=== PATIENT | male | born 1965 | race Caucasian/White ===

== ENCOUNTER 2024-08-29 13:24 | Emergency (ER) | payer BC, SELFPAY ==
[2024-08-29 13:27] VITALS: BP 140/99
--- NOTE | 2024-08-29 14:38 | ED.GENMED ---
History of Present Illness
General
Chief Complaint: Musculo-Skeletal Complaint
Source: patient
Time Seen by Provider: 08/29/24 14:23
History of Present Illness
History of Present Illness:
59yo left hand dominant male with a history of type 2 diabetes and hypothyroidism presenting for evaluation of right wrist pain. Pain started yesterday. He denies any trauma or inciting incident. Pain is present from the wrist down throughout the
hand. Pain is worse with movement. He is also having some tingling in all of his fingers. No prior history of similar pains. He denies any history of gout or rheumatologic disorders. No recent tick bites or rashes.
Past History
Past History
ED Past Medical History: NIDDM and Other (sleep apnea)
ED Past Surgical History: Other (hernia)
Social History
Tobacco: Non-smoker
Personal:
Living: with family
Phy Exam
General Physical Exam
General Presentation: well appearing and no apparent distress
General age: appears stated age
General Skin: warm and dry
General Habitus: normal
General Mental: alert
General Hydration: appears well hydrated
ENT Exam
ENT Exam: normocephalic
Neurological Exam
Neurological Exam: alert
Musculoskeletal Exam
Musculoskeletal Exam: other (Right wrist: Normal to inspection without obvious swelling. No erythema or warmth. +Diffuse tenderness to joint. Pain elicited with ROM. 2+ radial pulse and sensation intact. )
Skin Exam
Skin Exam: normal color and warm/dry
Psychiatric Exam
Psychiatric Exam: normal mood/affect
Course
Orders/Labs/Results
Orders:
Orders
08/29/24 13:30
CR Hand - Right Min 3 Views Urgent
Comment:
Reason For Exam: pain
Wrist, Right 3 Views [CR Wrist - Right Min 3 Views] Urgent
Comment:
Reason For Exam: pain
08/29/24 14:37
[place] Wrist Right-Tx ONCE
Prednisone [Deltasone] 40 mg PO NOW STA
Vital Signs
Initial and Last Documented VS:
Initial Vital Signs
Temp Pulse Resp BP Pulse Ox
98.2 F 97 20 140/99 98
08/29/24 13:27 08/29/24 13:27 08/29/24 13:27 08/29/24 13:27 08/29/24 13:27
Last Documented Vital Signs
Temp Pulse Resp BP Pulse Ox
98.2 F 80 18 130/70 98
08/29/24 13:27 08/29/24 15:07 08/29/24 15:07 08/29/24 15:07 08/29/24 15:07
MDM/Problems Addressed
Differential Diagnosis Includes:
59yoM here with atraumatic R wrist pain x 1 day. Pain worse with movement. No swelling or erythema on exam. There is diffuse joint tenderness. RLE is neurovascularly intact. Differential diagnosis includes but is not limited to: Fracture, sprain,
gout, other inflammatory arthritis, no clinical evidence of septic arthritis
X-rays of the right hand and wrist obtained. No acute osseous abnormality seen on imaging. There is minimal osteoarthritis noted. Will trial course of prednisone. He was placed in a wrist brace for comfort. Advised follow-up with PCP and
orthopedics if symptoms persist. ED return precautions discussed including fevers. He was discharged stable condition.
*Critical Care Note
Total Time (30-74mins, 75-104mins- exclusive of procedures): Not Applicable
ED Attending Note
-
Portions of this chart may have been created with voice recognition software.� Occasional wrong word or��sound alike� substitutions may have occurred due to the inherent limitations of voice recognition software.
Discharge Plan
Departure
Patient Disposition: Home (Routine Discharge)
Date of Disposition: 08/29/24
Time of Disposition: 14:39
Patient with high blood pressure during this ER visit?: Yes
Discharge Problem:
Right wrist pain
Instructions: Muscle and bone pain - Discharge instructions
Prescriptions:
New
prednisone 20 mg tablet
40 mg PO DAILY 4 Days Qty: 8 0RF
No Action
cetirizine [All Day Allergy Relief(cetir)] 10 MG tablet
10 mg PO HS
prednisone 10 MG tablets,dose pack
. DIRECTED
Patient Comments:
3 pills of third days taken 02/04/12
cephalexin 500 MG capsule
500 mg PO TID
levothyroxine 200 MCG tablet
200 mcg PO HS
fluticasone propionate 1 SPRAY spray,suspension
1 spray intranasal HS
amoxicillin-pot clavulanate 1 TABLET tablet
1 tab PO Q12 Qty: 19 0RF
Referrals:
Buck Burnett MD [Family Provider] -
Chapo Mortensen MD [Active] -
Activity Restrictions/Additional Instructions:
Apply ice to affected area. Take prednisone as prescribed, next dose is tomorrow. You may also take Tylenol and ibuprofen as needed. Use wrist brace for support.
Please follow-up with your family doctor and orthopedics. Return to the ER with any worsening symptoms or fevers.
Interventions
Interventions:
*Risk Screen - Suicide Last Done: 08/29/24 13:30
*General Assessment Last Done: 08/29/24 13:30
*Neglect/Abuse Screening Last Done: 08/29/24 15:07
*ED COVID-19 Vaccine History Last Done: 08/29/24 13:30
*Nursing Disposition Last Done: 08/29/24 15:07
ED-Musculoskeletal Assessment Last Done: 08/29/24 13:45
Discharge Date and Time
Discharge Date/Time: 08/29/24 15:09
Print Language: TRINIDADIAN
[2024-08-29] MEDS: DELTASONE 40 MG PO (14:52)
[2024-08-29 15:07] VITALS: BP 130/70
== END 2024-08-29 15:09 | disposition home or self-care (01) ==
LOC: EMR 13:24
PROVIDERS: EMERGENCY PHYSICIAN Emergency Medicine; FAMILY PHYSICIAN Family Medicine
DX: M25.531 Pain in right wrist (principal); E11.9 Type 2 diabetes mellitus without complications; G47.30 Sleep apnea, unspecified; E03.9 Hypothyroidism, unspecified
CPT/HCPCS: 99283; 73110; 73130

== ENCOUNTER 2025-01-03 11:16 | Emergency (ER) | payer BC, SELFPAY ==
[2025-01-03 11:19] VITALS: BP 136/90
--- NOTE | 2025-01-03 11:38 | ED.GENMED ---
History of Present Illness
General
Chief Complaint: Musculo-Skeletal Complaint
Time Seen by Provider: 01/03/25 11:28
History of Present Illness
History of Present Illness:
TIME OF INITIAL ENCOUNTER: 11:30 AM
HPI: The patient has a history of diabetic neuropathy and over the past week or so has been having increasing pain primarily at the right lateral malleolus. There is been no trauma. He chronically has swelling to the lower extremities which is
overall improving this week while trying to keep the leg elevated is much as possible. He sees a stock worker and deliverer.
EXAM:
GENERAL: Well appearing in no distress, markedly elevated BMI
HEENT: Moist oral mucosa
NEUROLOGIC: Excellent strength all extremities, no obvious coordination deficits
PSYCHIATRIC: Appropriate mental status, normal insight and judgement
EXTREMITIES: Diffuse swelling noted to both lower extremities, no wounds noted, there is point tenderness to the right lateral malleolus, there is an easily palpable DP pulse with good capillary refill
SKIN: Some superficial varicosities noted
NUMBER AND COMPLEXITY OF PROBLEMS ADDRESSED AT THE ENCOUNTER
� Chronic conditions affecting care: Diabetic neuropathy
� Acute Exacerbation and/or Progression of Chronic Illness: This is an acute problem
� Differential Diagnosis includes: Pain related to diabetic neuropathy, no evidence of cellulitis/infection, nondisplaced stress fracture, ankle sprain
AMOUNT AND/OR COMPLEXITY OF DATA TO BE REVIEWED AND ANALYZED
� I performed an independent evaluation of and my interpretation is:
EKG:
CT:
X-rays: X-rays personally reviewed and I agree with radiologist interpretation that there is no acute abnormality
Laboratory Studies:
Other:
� Review of other/old records: I reviewed records, the patient was seen here with wrist pain in August 2024, the patient went to the OR with Dr. Arrieta in 2014 related to right medial meniscus tear
� Clinical information was obtained by an independent historian: I spoke to the daughter at bedside
� Prescriptions/Medications Considered but not given:
� Further testing considered but not performed:
RISK OF COMPLICATIONS AND/OR MORBIDITY OR MORTALITY OF PATIENT MANAGEMENT
� Social determinants of health affecting care: Lives at home
� Discussion with other providers:
� Escalation of care including admission/observation vs risk of discharge considered: Symptoms could be related to diabetic neuropathy. Seems to have point tenderness at the right lateral malleolus but x-rays unremarkable. He
was given a shot of Toradol here. He reports normal renal function. He will continue Motrin at home. Air splint given.
ANY OTHER UPDATES:
Past History
Past History
ED Past Medical History: NIDDM and Other (sleep apnea)
ED Past Surgical History: Other (hernia)
Social History
Tobacco: Non-smoker
Personal:
Living: with family
Phy Exam
Physical Exam
Physical Exam:
See HPI
Course
Orders/Labs/Results
Orders:
Orders
01/03/25 11:37
Air Splint Right-Treatment ONCE
Ketorolac [Toradol] 30 mg IM NOW STA
CR Ankle - Right Min 3 Views * Urgent
Comment:
Reason For Exam: nontraumatic pain R lat mall
Vital Signs
Initial and Last Documented VS:
Initial Vital Signs
Temp Pulse Resp BP Pulse Ox
36.3 C 97 18 136/90 98
01/03/25 11:19 01/03/25 11:19 01/03/25 11:19 01/03/25 11:19 01/03/25 11:19
Last Documented Vital Signs
Temp Pulse Resp BP Pulse Ox
36.3 C 84 16 124/75 99
01/03/25 11:19 01/03/25 12:00 01/03/25 12:00 01/03/25 12:00 01/03/25 12:00
*Critical Care Note
Total Time (30-74mins, 75-104mins- exclusive of procedures): Not Applicable
ED Attending Note
-
Portions of this chart may have been created with voice recognition software.� Occasional wrong word or��sound alike� substitutions may have occurred due to the inherent limitations of voice recognition software.
Discharge Plan
Departure
Patient Disposition: Home (Routine Discharge)
Date of Disposition: 01/03/25
Time of Disposition: 12:55
Patient with high blood pressure during this ER visit?: Yes
Discharge Problem:
Diabetic neuropathy
Instructions: Foot care for people with diabetes, BLOOD PRESSURE
Prescriptions:
No Action
cetirizine [All Day Allergy Relief(cetir)] 10 MG tablet
10 mg PO HS
prednisone 10 MG tablets,dose pack
. DIRECTED
Patient Comments:
3 pills of third days taken 02/04/12
cephalexin 500 MG capsule
500 mg PO TID
levothyroxine 200 MCG tablet
200 mcg PO HS
fluticasone propionate 1 SPRAY spray,suspension
1 spray intranasal HS
amoxicillin-pot clavulanate 1 TABLET tablet
1 tab PO Q12 Qty: 19 0RF
prednisone 20 mg tablet
40 mg PO DAILY 4 Days Qty: 8 0RF
Referrals:
Buck Burnett MD [Family Provider] -
Jose David Sanford MD [Active] - As needed
Activity Restrictions/Additional Instructions:
The cause of your symptoms is unclear but could be related to your diabetic neuropathy. The x-ray shows no acute abnormality. You can take the splint on and off for comfort. I have given you the contact information for local orthopedist to
follow-up with if needed, Dr. Sanford.
Interventions
Interventions:
*Risk Screen - Suicide Last Done: 01/03/25 11:19
*General Assessment Last Done: 01/03/25 11:19
*Neglect/Abuse Screening Last Done: 01/03/25 11:19
*ED- Fall Risk Assessment Last Done: 01/03/25 11:28
*Nursing Disposition Last Done: 01/03/25 12:58
ED-Musculoskeletal Assessment Last Done: 01/03/25 11:28
Discharge Date and Time
Print Language: MALAY
[2025-01-03] MEDS: TORADOL 30 MG IM (11:43)
[2025-01-03 12:00] VITALS: BP 124/75
== END 2025-01-03 12:58 | disposition home or self-care (01) ==
LOC: EMR 11:16
PROVIDERS: EMERGENCY PHYSICIAN Emergency Medicine; FAMILY PHYSICIAN Family Medicine
DX: E11.40 Type 2 diabetes mellitus with diabetic neuropathy, unspecified (principal); G47.30 Sleep apnea, unspecified
CPT/HCPCS: 99283; 96372; 73610

== ENCOUNTER 2025-06-15 10:38 | Emergency (ER) | payer BC, SELFPAY ==
[2025-06-15 10:43] VITALS: BP 143/89
--- NOTE | 2025-06-15 11:56 | ED.GENMED ---
History of Present Illness
<Rusty Bearden MD, Resident - Last Filed: 06/15/25 15:39>
General
Chief Complaint: Musculo-Skeletal Complaint
Source: patient
Exam Limitations: none
Time Seen by Provider: 06/15/25 11:07
History of Present Illness
History of Present Illness:
Patient is a 60-year-old male who presents to the emergency department with left foot and left knee pain that started 5 days prior to his presentation. he stated that he was resting in bed and heard cracking at his left foot and while there was no
pain initially 12 hours later and immense pain started. He has a history of diabetes, diabetic neuropathy, hypothyroidism, sleep apnea, right knee arthroscopic surgery, mastoidectomy of the right side, and obesity. His baseline weight is decreased
from 395 pounds to 335 pounds since starting Mounjaro. Few weeks ago he saw his orthopedist and he was evaluated, and the recommendations was that the patient would likely need to have a left knee replacement in the future. He states that there is
an immense amount of pain between the left knee and foot localized to the lateral aspect of the lower limb. He is having difficulty bending the knee and any movement is painful. He describes the pain as sharp and it is rated a 4 out of 10 at rest
but when he tries to ambulate it approaches a 9-10 out of 10. He uses a walker to ambulate normally. He has good sensation throughout the lower limb except for at the toes which is unchanged from his baseline.
Past History
<Rusty Bearden MD, Resident - Last Filed: 06/15/25 15:39>
Past History
ED Past Medical History: NIDDM and Other (sleep apnea)
ED Past Surgical History: Other (hernia)
Social History
Tobacco: Non-smoker
Personal:
Living: with family
Family History
Family History: Diabetes ( Father had diabetes) and Hypertension ( mother had hypertension)
Review of Systems
<Rusty Bearden MD, Resident - Last Filed: 06/15/25 15:39>
Review of Systems
Constitutional: Reports no symptoms
EENT: Reports no symptoms
Respiratory: Reports no symptoms
Cardiac: Reports no symptoms
ABD/GI: Reports no symptoms
: Reports no symptoms
Musculoskeletal: Reports no symptoms
Skin: Reports no symptoms
Neurological: Reports numbness ( Bilateral lower digit numbness - unchanged from baseline)
Endocrine: Reports no symptoms
Hematologic/Lymphatic: Reports no symptoms
Psychiatric: Reports no symptoms
Phy Exam
<Rusty Bearden MD, Resident - Last Filed: 06/15/25 15:39>
General Physical Exam
General Presentation: well appearing
General age: appears stated age
General Skin: warm and dry
General Habitus: obese
General Mental: alert
General Hydration: appears well hydrated
Cardiovascular Exam
Cardiovascular Exam: regular rate/rhythm, no edema, no gallop, no JVD, no murmur and normal peripheral pulses
Pulmonary Exam
Pulmonary Exam: lungs clear, no respiratory distress, no rales, chest non tender, no crackles, no rhonchi, no stridor, no wheezing and no cough
Oxygen Status: room air
Musculoskeletal Exam
Musculoskeletal Exam: other ( difficulty with movement of the left knee. Sensation and strength preserved throughout lower left limb. Numbness of the lower digits bilaterally which remains unchanged from baseline. Popliteal pulses appreciated
bilaterally.)
Skin Exam
Skin Exam: other ( venous stasis of the bilateral lower limbs)
Course
<Rusty Bearden MD, Resident - Last Filed: 06/15/25 15:39>
Orders/Labs/Results
Orders:
Orders
06/15/25 11:36
Foot, Left 3 View [CR Foot - Left Min 3 Views] Urgent
Comment:
Reason For Exam: atraumatic left lateral foot/ankle pain
06/15/25 11:37
Ankle, left 3 view CR [CR Ankle - Left Min 3 Views ] Urgent
Comment:
Reason For Exam: atraumatic left foot and ankle pain
US Legs, Left [US Periph Venous LOWER Ext LT] Urgent
Comment:
Reason For Exam: L calf and L ankle pain
06/15/25 11:39
Oxycodone [Roxicodone] 10 mg PO NOW STA
06/15/25 15:37
Urinalysis Reflex To Culture Urgent
Date Specimen was Collected: 06/15/25
Time Specimen was Collected: 15:36
Urine Microscopic Reflex Cult Urgent
Urine Culture Urgent
ELÍAS Source: U
Specimen Description:
Date Specimen was Collected: 06/15/25
Time Specimen was Collected: 15:36
06/15/25 15:53
Kidney & Bladder US [US Renal With Bladder] Urgent
Comment:
Reason For Exam: bloody urine
06/15/25 15:58
Complete Blood Count/No Diff Urgent
Comprehensive Metabolic Panel Urgent
06/15/25 19:39
Cephalexin Monohydrate [Keflex] 500 mg PO NOW STA
Abnormal Lab Results
06/15/25 06/15/25
15:37 15:58
WBC 14.3 H 10^3/uL
(4.8-10.8)
MCHC 32.9 L g/dL
(33.0-37.0)
Glucose 105 H mg/dl
(70-99)
Total Bilirubin 2.4 H mg/dl
(0.2-1.3)
Ur Occult Blood Reflex 4+ A
(Negative)
Urine Bilirubin 1+ A
(Negative)
Urine Urobilinogen 2+ A
(Neg - 1+)
Leukocyte Esterase Rfl 1+ A
(Negative)
Urine RBC 60-70 A /HPF
(0-2)
Urine Bacteria (Reflex) Few A
(Negative)
Urine Albumin (Reflex) 2+ A
(Neg - Trace)
06/15/25 15:58
06/15/25 15:58
Vital Signs
Initial and Last Documented VS:
Initial Vital Signs
Pulse Resp BP Pulse Ox
108 16 143/89 98
06/15/25 10:43 06/15/25 10:43 06/15/25 10:43 06/15/25 10:43
Last Documented Vital Signs
Pulse Resp BP Pulse Ox
108 16 143/89 98
06/15/25 10:43 06/15/25 10:43 06/15/25 10:43 06/15/25 11:57
<Dimple Encarnacion MD - Last Filed: 06/15/25 12:12>
Orders/Labs/Results
Orders:
Orders
06/15/25 11:36
Foot, Left 3 View [CR Foot - Left Min 3 Views] Urgent
Comment:
Reason For Exam: atraumatic left lateral foot/ankle pain
06/15/25 11:37
Ankle, left 3 view CR [CR Ankle - Left Min 3 Views ] Urgent
Comment:
Reason For Exam: atraumatic left foot and ankle pain
US Legs, Left [US Periph Venous LOWER Ext LT] Urgent
Comment:
Reason For Exam: L calf and L ankle pain
06/15/25 11:39
Oxycodone [Roxicodone] 10 mg PO NOW STA
06/15/25 15:37
Urinalysis Reflex To Culture Urgent
Date Specimen was Collected: 06/15/25
Time Specimen was Collected: 15:36
Urine Microscopic Reflex Cult Urgent
Urine Culture Urgent
ELÍAS Source: U
Specimen Description:
Date Specimen was Collected: 06/15/25
Time Specimen was Collected: 15:36
06/15/25 15:53
Kidney & Bladder US [US Renal With Bladder] Urgent
Comment:
Reason For Exam: bloody urine
06/15/25 15:58
Complete Blood Count/No Diff Urgent
Comprehensive Metabolic Panel Urgent
06/15/25 19:39
Cephalexin Monohydrate [Keflex] 500 mg PO NOW STA
Abnormal Lab Results
06/15/25 06/15/25
15:37 15:58
WBC 14.3 H 10^3/uL
(4.8-10.8)
MCHC 32.9 L g/dL
(33.0-37.0)
Glucose 105 H mg/dl
(70-99)
Total Bilirubin 2.4 H mg/dl
(0.2-1.3)
Ur Occult Blood Reflex 4+ A
(Negative)
Urine Bilirubin 1+ A
(Negative)
Urine Urobilinogen 2+ A
(Neg - 1+)
Leukocyte Esterase Rfl 1+ A
(Negative)
Urine RBC 60-70 A /HPF
(0-2)
Urine Bacteria (Reflex) Few A
(Negative)
Urine Albumin (Reflex) 2+ A
(Neg - Trace)
06/15/25 15:58
06/15/25 15:58
Vital Signs
Initial and Last Documented VS:
Initial Vital Signs
Pulse Resp BP Pulse Ox
108 16 143/89 98
06/15/25 10:43 06/15/25 10:43 06/15/25 10:43 06/15/25 10:43
Last Documented Vital Signs
Pulse Resp BP Pulse Ox
108 16 143/89 98
06/15/25 10:43 06/15/25 10:43 06/15/25 10:43 06/15/25 11:57
Bertlt;Demarcus Jarrett DO - Last Filed: 06/15/25 19:45>
Orders/Labs/Results
Orders:
Orders
06/15/25 11:36
Foot, Left 3 View [CR Foot - Left Min 3 Views] Urgent
Comment:
Reason For Exam: atraumatic left lateral foot/ankle pain
06/15/25 11:37
Ankle, left 3 view CR [CR Ankle - Left Min 3 Views ] Urgent
Comment:
Reason For Exam: atraumatic left foot and ankle pain
US Legs, Left [US Periph Venous LOWER Ext LT] Urgent
Comment:
Reason For Exam: L calf and L ankle pain
06/15/25 11:39
Oxycodone [Roxicodone] 10 mg PO NOW STA
06/15/25 15:37
Urinalysis Reflex To Culture Urgent
Date Specimen was Collected: 06/15/25
Time Specimen was Collected: 15:36
Urine Microscopic Reflex Cult Urgent
Urine Culture Urgent
ELÍAS Source: U
Specimen Description:
Date Specimen was Collected: 06/15/25
Time Specimen was Collected: 15:36
06/15/25 15:53
Kidney & Bladder US [US Renal With Bladder] Urgent
Comment:
Reason For Exam: bloody urine
06/15/25 15:58
Complete Blood Count/No Diff Urgent
Comprehensive Metabolic Panel Urgent
06/15/25 19:39
Cephalexin Monohydrate [Keflex] 500 mg PO NOW STA
Abnormal Lab Results
06/15/25 06/15/25
15:37 15:58
WBC 14.3 H 10^3/uL
(4.8-10.8)
MCHC 32.9 L g/dL
(33.0-37.0)
Glucose 105 H mg/dl
(70-99)
Total Bilirubin 2.4 H mg/dl
(0.2-1.3)
Ur Occult Blood Reflex 4+ A
(Negative)
Urine Bilirubin 1+ A
(Negative)
Urine Urobilinogen 2+ A
(Neg - 1+)
Leukocyte Esterase Rfl 1+ A
(Negative)
Urine RBC 60-70 A /HPF
(0-2)
Urine Bacteria (Reflex) Few A
(Negative)
Urine Albumin (Reflex) 2+ A
(Neg - Trace)
06/15/25 15:58
06/15/25 15:58
Vital Signs
Initial and Last Documented VS:
Initial Vital Signs
Pulse Resp BP Pulse Ox
108 16 143/89 98
06/15/25 10:43 06/15/25 10:43 06/15/25 10:43 06/15/25 10:43
Last Documented Vital Signs
Pulse Resp BP Pulse Ox
108 16 143/89 98
06/15/25 10:43 06/15/25 10:43 06/15/25 10:43 06/15/25 11:57
<Rusty Bearden MD, Resident - Last Filed: 06/15/25 15:39>
*Pulse Oximetry
SaO2: 98
Oxygen Mode of Delivery: Room air
Patient hypoxic: no
*Critical Care Note
Total Time (30-74mins, 75-104mins- exclusive of procedures): 60
<Rusty eBarden MD, Resident - Last Filed: 06/15/25 15:39>
Update Note
Update Note:
Problem List:
left lower leg knee and ankle pain
venous stasis of the lower limbs bilaterally
obesity
deep venous thrombosis
Plan:
oxycodone 10 mg for analgesia
x-ray ankle 3 views
x-ray foot 3 views
left lower limb ultrasound
Sea wrap
Differential Diagnoses:
idiopathic musculoskeletal pain
nerve compression
diabetic neuropathy
Radiology:
- X-ray ankle 3 views conducted on 06/15/2025: No signs of acute fracture
- X-ray foot 3 views conducted on 06/15/2025: no signs of acute fracture
- Ultrasound of the left lower extremity conducted on 06/15/2025: No evidence of DVT of the left lower extremity
EKG: Not applicable
Labs: not applicable
Updates:
patient has normal range of movement of the left lower limb but pain on movement and difficulty putting weight on the limb. good sensation and good strength throughout the limb except for reduced sensation of the digits bilaterally. Strong
popliteal pulses felt.
recommended Sea wrap
oxycodone for analgesia
patient got mild pain relief with the oxycodone given�unfortunately during the process of receiving images and the ultrasound the patient's left leg is in pain and the patient is even more uncomfortable
ultrasound of the left lower leg showed no evidence of DVT
x-ray of the ankle and foot 3 views show no signs of acute fracture
patient to be discharged on 5 mg of oxycodone and with instructions to follow-up with orthopedics and pain specialist at discharge.
patient would like to be discharged at the present time and there are no barriers that would impede the patient from being discharged.
Patient was slated for discharge but in the emergency department the patient experienced hematuria
CBC, CMP, urine analysis, and ultrasound of the bladder and kidneys ordered
ED Attending Note
<Rusty Bearden MD, Resident - Last Filed: 06/15/25 15:39>
-
Portions of this chart may have been created with voice recognition software.� Occasional wrong word or��sound alike� substitutions may have occurred due to the inherent limitations of voice recognition software.
<Dimple Encarnacion MD - Last Filed: 06/15/25 12:12>
ED Attending Note
Patient seen and examined by attending physician: Yes
I performed a history and physical exam of patient and discussed management with resident, I reviewed resident's note and agree with documented findings and plan of care.: Yes
ED Attending Note:
Patient appears extremely well and comfortable. Left ankle is not erythematous and I could passively move it without any significant pain. It is not warm to the touch. Therefore, there is no clinical sign of gout or septic arthritis. Patient's
pain is rather diffuse along the left lateral foot, lateral ankle, and tracks up the left lower leg. I do not see any signs of skin redness suggesting lymphangitis or cellulitis. Pain may be related to arthritis or neuropathy. Patient has strong
pulses of his left foot.
<Demarcus Jarrett DO - Last Filed: 06/15/25 19:45>
ED Attending Note
ED Attending Note:
Patient appears extremely well and comfortable. Left ankle is not erythematous and I could passively move it without any significant pain. It is not warm to the touch. Therefore, there is no clinical sign of gout or septic arthritis. Patient's
pain is rather diffuse along the left lateral foot, lateral ankle, and tracks up the left lower leg. I do not see any signs of skin redness suggesting lymphangitis or cellulitis. Pain may be related to arthritis or neuropathy. Patient has strong
pulses of his left foot.
1940: Pt developed hematuria at the time of discharge. u/s of kidney ordered and NAD. UA shows RBC's. Will cover for hemorrhagic cystitis and advice close urology f/u
Discharge Plan
Departure
Patient Disposition: Home (Routine Discharge)
Date of Disposition: 06/15/25
Time of Disposition: 19:42
Patient with high blood pressure during this ER visit?: No
Condition: Good
Discharge Problem:
Musculoskeletal pain of left lower extremity, Hematuria
Instructions: Knee Pain (DC), Ankle Impingement
Prescriptions:
New
oxycodone 5 mg tablet
5 mg PO Q6H PRN (Reason: Pain) Qty: 12 0RF
cephalexin 500 mg capsule
500 mg PO BID 7 Days Qty: 14 0RF
No Action
fluticasone propionate 1 SPRAY spray,suspension
1 spray intranasal HS
metformin 500 mg tablet
1,000 mg PO BID
levothyroxine 175 mcg tablet
175 mcg PO HS
gabapentin 600 mg tablet
600 mg PO HS
cetirizine 10 mg Tablet
10 mg PO HS
ibuprofen 200 mg Tablet
800 mg PO DAILYPRN PRN (Reason: mild pain)
gabapentin 300 mg capsule
300 mg PO TID@0800,1200,2000
Magnesium Complex 300 mg magnesium Tablet
300 mg PO HS
Mounjaro 12.5 mg/0.5 mL pen injector
12.5 mg SC RICHARDSON
Referrals:
Buck Burnett MD [Family Provider] - Follow up in 1 week
Alex Murray Jr., MD [Active, Urology]
Activity Restrictions/Additional Instructions:
Patient should avoid strenuous physical activity and exacerbation of the already aggravated lower left limb. Patient should avoid strenuous physical activity for 1 week following discharge. Patient should meet with his primary care provider, pain
specialist, and orthopedics following discharge.
Follow up with urology (Dr. Murray)
Interventions
Interventions:
*Risk Screen - Suicide Last Done: 06/15/25 10:43
*General Assessment Last Done: 06/15/25 11:25
*Neglect/Abuse Screening Last Done: 06/15/25 10:43
*ED- Fall Risk Assessment Last Done: 06/15/25 11:25
*ED COVID-19 Vaccine History Last Done: 06/15/25 11:25
ED-Musculoskeletal Assessment Last Done: 06/15/25 11:25
Discharge Date and Time
Print Language: SAL[place]ORE[place]
[2025-06-15] MEDS: ROXICODONE 10 MG PO (12:07)
[2025-06-15 12:08] VITALS: BMI 42.8
[2025-06-15 16:10] LABS: Urine Character Slightly Cloudy (Clear)
[2025-06-15 16:12] LABS: Hematocrit 45.6 % (39.0-52.0); Hemoglobin 15.0 g/dL (13.0-18.0); Mean Corp Hgb Conc. 32.9 g/dL (33.0-37.0); Mean Corpuscular Volume 84.1 fL (80.0-94.0); Platelet Count 262 10^3/uL (130-400); Red Cell Dist. Width 13.8 % (11.5-14.5)
[2025-06-15 16:28] LABS: ALT (SGPT) 28 U/L (0-50); AST (SGOT) 23 U/L (17-59); Albumin 4.1 g/dl (3.5-5.0); Alkaline Phosphatase 65 U/L (38-126); Blood Urea Nitrogen 14 mg/dl (9-20); Calcium 8.8 mg/dl (8.4-10.2); Carbon Dioxide 27 mmol/L (22-30); Chloride 106 mmol/L (98-107); Estimated Creatinine Clearance > 125 ml/min; Glucose 105 mg/dl (70-99); Potassium 3.9 mmol/L (3.5-5.1); Sodium 141 mmol/L (135-145); Total Protein 7.6 g/dl (6.3-8.2); eGFR > 60.00
[2025-06-15 16:52] LABS: Urine Red Blood Cell 60-70 /HPF (0-2)
[2025-06-15 16:53] LABS: Urine White Cell 0-2 /HPF (0-5)
[2025-06-15] MEDS: KEFLEX 500 MG PO (20:00)
== END 2025-06-15 20:40 | disposition home or self-care (01) ==
LOC: EMR 10:38
PROVIDERS: EMERGENCY PHYSICIAN Emergency Medicine; FAMILY PHYSICIAN Family Medicine
DX: M79.605 Pain in left leg (principal); R31.9 Hematuria, unspecified; E11.40 Type 2 diabetes mellitus with diabetic neuropathy, unspecified; E03.9 Hypothyroidism, unspecified; G47.30 Sleep apnea, unspecified
CPT/HCPCS: 99284; 73610; 73630; 76770; 80053; 81003; 81015; 85027; 87086; 93971